=== PATIENT | female | born 1935 | race Caucasian/White ===

== ENCOUNTER 2018-06-26 16:13 | Emergency (ER) | payer OTHER, BC ==
[2018-06-26] MEDS: KETOROLAC 15 MG INJ IM (18:17)
== END 2018-06-26 18:22 | disposition home or self-care (01) ==
LOC: FTE 16:13
DX: M17.9 Osteoarthritis of knee, unspecified (principal); I10 Essential (primary) hypertension; E11.9 Type 2 diabetes mellitus without complications; Z79.4 Long term (current) use of insulin; Z79.82 Long term (current) use of aspirin
CPT/HCPCS: 96372; 99284-25; J1885